=== PATIENT | female | born 1935 | race Caucasian/White ===

== ENCOUNTER 2019-02-01 06:54 | Day surgery (SDC) | payer MEDICARE, BC ==
[~2019-02-01] VITALS: Ht 149.9 cm; Wt 56.8 kg
[2019-02-01 07:05] VITALS: BP 114/69
[2019-02-01] MEDS ORDERED: TRAZ300T2 PO (07:28)
[2019-02-01] MEDS ORDERED: RAMI5CAP65 PO (07:29)
[2019-02-01] MEDS ORDERED: TEMA30CA5 PO (07:29)
[2019-02-01] MEDS ORDERED: GLIM1TAB3 PO (07:30)
[2019-02-01] MEDS ORDERED: LEVO50TA8 PO (07:31)
[2019-02-01] MEDS ORDERED: CARTIA PO (07:33)
[2019-02-01] MEDS ORDERED: CARV25TA2 PO (07:34)
[2019-02-01] MEDS ORDERED: METF-516 PO (07:42)
[2019-02-01] MEDS ORDERED: LACT1CAP65 PO (07:44)
[2019-02-01 08:42] VITALS: BP 138/69
== END 2019-02-01 09:00 | disposition home or self-care (01) ==
LOC: GI LAB 06:54
PROVIDERS: ATTEND Internal Medicine Gastroenterology
DX: K52.832 Lymphocytic colitis (principal); K64.8 Other hemorrhoids
CPT/HCPCS: 45380; J7040; 88305; 88313; A4620; G0500